=== PATIENT | male | born 1990 | race Caucasian/White ===

== ENCOUNTER 2019-01-04 19:59 | Emergency (ER) | payer BC, OTHER ==
[~2019-01-04] VITALS: Ht 188 cm; Wt 81.6 kg
[2019-01-04] MEDS ORDERED: LORAZEPAM 1 MG TAB PO ONE (20:15)
--- NOTE | 2019-01-04 20:54 | Diagnostic Imaging Report ---
Frontal and lateral views of the chest. HISTORY: cough, chest pain, shortness of breath COMPARISON: None available. DISCUSSION: Overlying monitoring leads. Lungs: The lungs are well inflated. No evidence of a consolidative pneumonia or pulmonary alveolar edema. Pleura: No pleural effusion or pneumothorax. Heart and mediastinum: The cardiomediastinal silhouette appears unremarkable. Bones and soft tissues: Appear unremarkable. IMPRESSION: No acute radiographic abnormality. Signed by: Dr. Shabbir Arredondo D.O., M.M.M. on 01/04/2019 8:50 PM
[2019-01-04 21:16] VITALS: BP 140/89
== END 2019-01-04 21:19 | disposition home or self-care (01) ==
LOC: ER 19:59
DX: F41.1 Generalized anxiety disorder (principal); R07.9 Chest pain, unspecified; I34.1 Nonrheumatic mitral (valve) prolapse
CPT/HCPCS: 71046; 93005; 99283